=== PATIENT | male | born 2000 | race Caucasian/White ===

== ENCOUNTER 2022-01-16 12:34 | Emergency (ER) | payer SELFPAY ==
[2022-01-16 13:14] VITALS: BP 126/79
--- NOTE | 2022-01-16 14:38 | ED Physician Documentation ---
History of Present Illness - Stated complaint Stated Complaint: R LEG LAC - Chief complaint Chief Complaint: Laceration - Additonal information Additional information: Patient is 21-year-old male presenting the emergency department with right leg laceration. Reports was using a box knife to cut tape to repair his skateboard and inadvertently cut his right leg. Declines tetanus immunization. States has been able to ambulate since the event. Used zip ties and garbage bags to attempt to tourniquet the wound prior to arrival. Review of Systems Ten Systems: 10 systems reviewed and negative PD PAST MEDICAL HISTORY - Allergies Allergies/Adverse Reactions: Allergies Allergy/AdvReac Type Severity Reaction Status Date / Time red (food color) Allergy Anxiety Verified 01/16/22 13:08 PD ED PE NORMAL - Vitals Vital signs reviewed: Yes - General General: Alert and oriented X 3 - HEENT HEENT: Atraumatic - Neck Neck: Supple, no meningeal sign - Respiratory Respiratory: No respiratory distress - Derm Derm: Other (2 cm laceration at the distal right thigh. Full and normal range of motion at the right knee.) Results - Vitals Vitals: Vital Signs - 24 hr 01/16/22 13:05 Temperature 36.4 C L Heart Rate 72 Respiratory 16 Rate Blood Pressure 126/79 O2 Saturation 98 Oxygen O2 Source Room air Procedures - Laceration (location) Lower extremity right Anterior Length in cm: 2 Wound type: Linear, Into subcut fat Neurovascular status: Sensory intact, Motor intact Anesthesia: Lidocaine 1% with epi Wound preparation: Chlorhexadine Skin layer closure: Sutures - enter # (4), Other (3-0 Vicryl) PD MEDICAL DECISION MAKING - ED course Complexity details: d/w patient ED course: Patient presents with right leg laceration. Bleeding controlled on arrival. No indications tendon involvement. Wound anesthetized, cleaned as outlined in procedure note above. Total of 4, 3-0 Vicryl stitches given. Wound care instructions and follow-up instructions given. Patient declined tetanus. Departure - Departure Disposition: 01 Home, Self Care Clinical Impression: Laceration Instructions: ED Laceration Scalp Stitch Or Stap Comments: Thank you for allowing us to care for you today at [facility]. Today received 4 absorbable stitches to the laceration in your right leg. I recommend twice daily application of bacitracin or Neosporin to this injury. Please change your dressings once daily. Rinsing the area gently with warm soapy water is fine but please not scrub the site of your stitches or submerge the area of your injury underwater until it is fully healed. The stitches will absorb over the course of the next 3 to 4 weeks. If the area develops any signs or symptoms concerning for infection please return to the emergency department.
[2022-01-16] MEDS ORDERED: LIDOCAINE 1%-EPI 1:100000 20 ML MDV SUBQ STA (15:04)
[2022-01-16] MEDS ORDERED: BACITRACIN ZINC OINT 1 PACKET TOP STA (16:00)
== END 2022-01-16 16:21 | disposition home or self-care (01) ==
LOC: ED 12:34
DX: S81.811A Laceration without foreign body, right lower leg, initial encounter (principal); W26.0XXA Contact with knife, initial encounter
CPT/HCPCS: 12001; 99282